=== PATIENT | female | born 1985 | race Caucasian/White ===

== ENCOUNTER 2016-10-27 14:37 | Emergency (ER) ==
[2016-10-27 15:48] LABS: MANUAL DIFF NEEDED? NO
[2016-10-27 15:52] LABS: BASO% 0.9 % (0.0-0.8); EOS# 0.15 X1000 (0.0-0.7); EOS% 2.2 % (0.0-10.0); HEMATOCRIT 43.2 % (37.0-47.0); LYMPH# 1.89 X1000 (1.2-3.4); LYMPH% 27.8 % (20.5-51.1); MCH 31.1 PG (27-31); MCHC 34.7 g/dL (33-37); MCV 89.4 FL (81-99); MONO# 0.84 X1000 (0.11-0.59); MONO% 12.4 % (1.7-9.3); MPV 10.7 FL (7.4-10.4); NEUT% 56.7 % (42.2-75.2); PLT 282 X1000 (130-400); RBC 4.83 XMIL (4.2-5.4)
[2016-10-27 16:08] LABS: AGAP 13; ALBUMIN 4.5 g/dL (3.5-5.0); ALKALINE PHOSPHATASE 56 U/L (32-104); BUN 12 mg/dL (8-22); CALCIUM 9.2 mg/dL (8.8-10.2); CHLORIDE 99 mmol/L (98-107); COSMO 275; GOT 16 U/L (10-30); GPT 16 U/L (10-36); POTASSIUM 3.6 mmol/L (3.5-5.1); SODIUM 138 mmol/L (136-145); TCO2 26 mmol/L (25-35); TOTAL BILIRUBIN 0.56 mg/dL (0.20-1.00); TOTAL PROTEIN 7.5 g/dL (6.3-8.3)
[2016-10-27 16:26] LABS: FREE T4 1.32 ng/dL (0.93-1.70)
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
[2016-10-27 17:14] LABS: URINE CULTURE NEEDED? NO; URINE MICRO REVIEW NEEDED? NO; URINE SOURCE CLEAN CATCH
[2016-10-27 17:18] LABS: BILIRUBIN URINE NEGATIVE (NEGATIVE); BLOOD URINE NEGATIVE (NEGATIVE); COLOR STRAW; GLUCOSE URINE NEGATIVE (NEGATIVE); LEUKOCYTES URINE NEGATIVE (NEGATIVE); NITRITE URINE NEGATIVE (NEGATIVE); PH URINE 5.5; PROTEIN URINE NEGATIVE (NEGATIVE); SP GRAVITY URINE 1.005; TURBIDITY URINE CLEAR (CLEAR); UROBILINOGEN URINE NORMAL (NORMAL)
[2016-10-27 17:19] LABS: UR EPITHELIAL CELLS <10 /HPF (<10); URINE BACTERIA NEGATIVE /HPF; URINE RBC <10 /HPF (<10); URINE WBC <10 /HPF (<10)
[2016-10-27 17:28] LABS: UR AMPHETAMINES QUAL PRESUMPTIVE POSITIVE (NONE DETECT); UR BARBITUATES QUAL NONE DETECTED (NONE DETECT); UR BENZODIAZEPIN QUAL NONE DETECTED (NONE DETECT); UR CANNABINOIDS QUAL NONE DETECTED (NONE DETECT); UR COCAINE QUAL NONE DETECTED (NONE DETECT); UR METHADONE QUAL NONE DETECTED (NONE DETECT); UR OPIATES QUAL NONE DETECTED (NONE DETECT); UR OXYCODONE QUAL NONE DETECTED (NONE DETECT); UR PCP QUAL NONE DETECTED (NONE DETECT)
[2016-10-27 18:15] LABS: ACETAMINOPHEN < 1.2 ug/mL (10-30)
[2016-10-27] MEDS ORDERED: ATIVAN PO ONE (20:21)
[2016-10-27 23:54] VITALS: BP 147/97
--- NOTE | 2016-10-28 05:47 | EKG Report ---
Test Performed on : 10/27/2016 8:07:04 PM Test Reason : admission Blood Pressure : / mmHG Vent. Rate : 078 BPM Atrial Rate : 078 BPM P-R Int : 170 ms QRS Dur : 082 ms QT Int : 378 ms P-R-T Axes : 055 084 048 degrees QTc Int : 430 ms Normal sinus rhythm. Normal ECG No previous ECGs available Unconfirmed Result
== END 2016-10-27 23:55 | disposition home or self-care (01) ==
LOC: ED 14:37
DX: R45.851 Suicidal ideations (principal); Z85.840 Personal history of malignant neoplasm of eye; F17.210 Nicotine dependence, cigarettes, uncomplicated; Z71.6 Tobacco abuse counseling
CPT/HCPCS: 36415; 80053; 81001; 81025; 82607; 84439; 84443; 85025; 93005; 99283; G0480